=== PATIENT | male | born 1930 | race Caucasian/White ===

== ENCOUNTER 2019-12-27 08:58 | Outpatient (CLI) | payer MEDICARE ==
[2019-12-27 09:33] LABS: #Basophils 0.1 thou/uL (0.0-0.2); #Eosinphils 0.3 thou/uL (0.0-0.7); #Monocytes 0.5 thou/uL (0.11-0.59); #Neutrophils 4.6 thou/uL (1.40-6.50); %Basophils 0.8 % (0.0-1.0); %Eosinophils 3.7 % (0.0-10.0); %Lymphocytes 27.1 % (21.0-51.0); %Monocytes 6.8 % (0.0-10.0); %Neutrophils 61.5 % (42.0-75.0); Mean Corpuscular HGB CONC 32.3 g/dL (32.0-36.0); Mean Corpuscular Hemoglobin 28.2 pg (27.0-31.0); Mean Corpuscular Volume 87.4 fL (78.0-98.0); Mean Platelet Volume 10.1 fL (7.4-10.4); Platelet Count 201 thou/uL (130-400); RBC Distribution Width 12.2 % (11.5-14.5); Red Blood Cell (RBC) Count 5.32 mill/uL (4.70-6.10); White Blood Cell (WBC) Count 7.5 thou/uL (4.8-10.8)
[2019-12-27 09:49] LABS: ALT (SGPT) 18 U/L (8-55); AST (SGOT) 16 U/L (5-34); Albumin 4.4 g/dL (3.4-4.8); Alkaline Phosphatase 68 U/L (40-110); Anion Gap 14 mmol/L (10-20); BUN (Urea Nitrogen) 17 mg/dL (8.4-25.7); Bilirubin, Total 0.7 mg/dL (0.2-1.2); Calc. Creatinine Clearance 0 mL/min (70-130); Calcium 9.4 mg/dL (7.8-10.44); Carbon Dioxide 24 mmol/L (23-31); Cardiac Risk 4.6 (Less than 4.5); Chloride 108 mmol/L (98-107); Cholesterol 130 mg/dl (< 200 Desired); Estimated GFR-MDRD 52; Globulin 2.6 g/dL (2.4-3.5); Glucose 97 mg/dL (83-110); HDL Cholesterol 28 mg/dL (>60 Neg Risk); LDL Cholesterol, Calculated 71 mg/dL; Potassium 3.9 mmol/L (3.5-5.1); Sodium 142 mmol/L (136-145); Triglycerides 154 mg/dL (Less than 150)
[2019-12-27 10:09] LABS: Bilirubin Negative (Negative); Blood, Urine Negative (Negative); Clarity Clear (Clear); Glucose, Urine (Dipstick) Negative (Negative); Leukocyte Negative (Negative); Nitrite Negative (Negative); Protein, Urine (Dipstick) Negative (Neg-Trace); Urobilinogen 0.2 mg/dL (Less than 2)
[2019-12-27 10:35] LABS: Bacteria/HPF Rare-Few HPF (None Seen); RBC/HPF None Seen HPF (0-3); Squamous Epithelial 0-3 HPF (0-3); WBC/HPF 0-3 HPF (0-3)
--- NOTE | 2019-12-27 17:17 | RAD ---
XR Knee Rt 4 View STANDARD: 12/27/2019 9:24 AM CLINICAL INDICATION: Right medial knee pain COMPARISON: None. FINDINGS: Bones: No acute fracture is demonstrated. 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 There is chondrocalcinosis within the rig ht knee joint. No joint capsular distention is evident.. Soft Tissue: No acute abnormality.. IMPRESSION: No acute fracture or subluxation demonstrated. Moderate osteoarthrosis of the right knee.
== END 2019-12-27 08:59 | disposition home or self-care (01) ==
LOC: BURRAD 08:58
PROVIDERS: ATTEND Family Medicine
DX: Z00.00 Encounter for general adult medical examination without abnormal findings (principal); M25.561 Pain in right knee; E78.5 Hyperlipidemia, unspecified; I10 Essential (primary) hypertension; M17.11 Unilateral primary osteoarthritis, right knee
CPT/HCPCS: 36415; 80053; 80061; 81001; 84443; 85025